=== PATIENT | male | born 1985 ===

== ENCOUNTER 2018-05-18 10:43 | Emergency (ER) | payer SELFPAY ==
[2018-05-18 10:49] VITALS: BMI 34.4
[2018-05-18 11:11] LABS: BASO # 0.06 K/mm3 (0.0-2.0); BASO % 0.9 % (0.0-3.0); EOS # 0.3 (0.0-0.7); EOS % 3.7 % (1.5-5.0); HEMOGLOBIN 15.6 g/dL (14.0-18.0); LYMPH # 2.5 (1.2-3.4); LYMPH % 35.3 % (22.0-35.0); MEAN CELL VOLUME 81.3 fl (80.0-105.0); MEAN CORPUSCULAR HEMOGLOBIN 28.9 pg (25.0-35.0); MEAN CORPUSCULAR HGB CONC 35.6 g/dl (31.0-37.0); MEAN PLATELET VOLUME 10.8 fl (7.0-11.0); MONO # 0.5 (0.1-0.6); MONO % 6.6 % (1.0-6.0); RBC 5.39 10^6/uL (3.5-6.1); RED CELL DISTRIBUTION WIDTH 12.9 % (11.5-14.5)
[2018-05-18 11:18] LABS: ALB/GLOB RATIO 1.3 (1.1-1.8); ALBUMIN 4.7 g/dL (3.0-4.8); ALT/SGPT 98 U/L (7-56); AST/SGOT 60 U/L (17-59); BLOOD UREA NITROGEN 10 mg/dL (7-21); CALCIUM 9.1 mg/dL (8.4-10.5); GFR NON-AFRICAN AMERICAN > 60
--- NOTE | 2018-05-18 11:23 | ED PDOC ---
Arrival/HPI - General Chief Complaint: Chest Pain Historian: Patient - History of Present Illness Narrative History of Present Illness (Text): 05/18/18 11:20 33 y/o M, ex-smoker, with no significant past medical history, presents to the ED for evaluation of sudden onset of chest pain since prior to arrival. Patient states he was walking down the stairs when he experienced a sharp stabbing pain localized to the left side of his chest. Patient states similar episodes of chest pain ongoing for past couple months, for which he was seen at [facility] in [place] 2 weeks ago and was discharged home with no significant findings. Patient informs taking Aspirin in the ambulance with improvement to symptoms. Patient currently informs improved symptoms with pain rated at 4/10 in severity. Patient denies any other associated somatic complaints. Patient denies any fevers, chills, headache, dizziness, shortness of breath, dyspnea on exertion, cough, abdominal pain, nausea, vomiting, diarrhea, back pain, neck pain, or any other complaints. Time/Duration: Prior to Arrival Symptom Onset: Gradual Symptom Course: Unchanged Activities at Onset: Light Context: Home Past Medical History - Provider Review Nursing Documentation Reviewed: Yes - Infectious Disease Hx of Infectious Diseases: None - Cardiac Hx Cardiac Disorders: No - Pulmonary Hx Asthma: Yes - Neurological Hx Neurological Disorder: No - Psychiatric Hx Substance Use: No - Anesthesia Hx Anesthesia: No Family/Social History - Physician Review Nursing Documentation Reviewed: Yes Family/Social History: Unknown Family HX Smoking Status: Former Smoker Hx Alcohol Use: Yes Frequency of alcohol use: Socially Hx Substance Use: No Allergies/Home Meds Allergies/Adverse Reactions: Allergies No Known Allergies Allergy (Verified 05/18/18 10:48) Review of Systems - Physician Review All systems were reviewed & negative as marked: Yes - Review of Systems Constitutional: absent: Fevers Respiratory: absent: SOB, Cough Cardiovascular: Chest Pain Gastrointestinal: absent: Abdominal Pain, Diarrhea, Nausea, Vomiting Genitourinary Male: absent: Dysuria, Urinary Output Changes Musculoskeletal: absent: Back Pain, Neck Pain Skin: absent: Rash Neurological: absent: Headache, Dizziness Psychiatric: absent: Anxiety Physical Exam Vital Signs Reviewed: Yes Vital Signs Temp Pulse Resp BP Pulse Ox 05/18/18 10:53 97.6 F 101 H 20 149/87 99 Temperature: Afebrile Blood Pressure: Normal Pulse: Regular Respiratory Rate: Normal Appearance: Positive for: Well-Appearing, Non-Toxic, Comfortable Pain Distress: None Mental Status: Positive for: Alert and Oriented X 3 - Systems Exam Head: Present: Atraumatic, Normocephalic Pupils: Present: PERRL Extroacular Muscles: Present: EOMI Conjunctiva: Present: Normal Respiratory/Chest: Present: Clear to Auscultation, Good Air Exchange, Tender to Palpation (Reproducible anterior left chest wall tenderness). No: Respiratory Distress, Accessory Muscle Use Cardiovascular: Present: Regular Rate and Rhythm, Normal S1, S2. No: Murmurs Abdomen: No: Tenderness, Distention, Peritoneal Signs Back: Present: Normal Inspection Upper Extremity: Present: Normal Inspection. No: Cyanosis, Edema Lower Extremity: Present: Normal Inspection. No: Edema Neurological: Present: GCS=15, CN II-XII Intact, Speech Normal Skin: Present: Warm, Dry, Normal Color. No: Rashes Psychiatric: Present: Alert, Oriented x 3, Normal Insight, Normal Concentration Medical Decision Making ED Course and Treatment: 05/18/18 10:59 Impression: 33 year old male presents to the ED for evaluation of chest pain. Differential Diagnosis included but are not limited to: -- Chest pain r/o ACS -- Musculoskeletal pain Plan: -- Labs -- EKG -- Urinalysis --CTPE -- Reassess and disposition Prior Visits: Notes and results from previous visits were reviewed. Progress Notes: 05/18/18 10:58 Discussed case and EKG findings with Dr. Mendieta(cardiology), who is aware and believes it is not a Code Heart. 05/18/18 15:07 Discussed radiology read with radiologist to confirm no evidence of acute PE. Will discharge patient home with follow-up instructions. - Lab Interpretations Lab Results: Total Bilirubin 0.6 mg/dL (0.2-1.3) 05/18/18 10:55 AST 60 U/L (17-59) H 05/18/18 10:55 ALT 98 U/L (7-56) H 05/18/18 10:55 Alkaline Phosphatase 88 U/L (38-126) 05/18/18 10:55 Total Protein 8.4 g/dL (5.8-8.3) H 05/18/18 10:55 Albumin 4.7 g/dL (3.0-4.8) 05/18/18 10:55 Globulin 3.6 gm/dL 05/18/18 10:55 Albumin/Globulin Ratio 1.3 (1.1-1.8) 05/18/18 10:55 05/18/18 10:55 05/18/18 10:55 Lab Results 05/18/18 11:40: Urine Opiates Screen Negative, Urine Methadone Screen Negative, Ur Barbiturates Screen Negative, Ur Phencyclidine Scrn Negative, Ur Amphetamines Screen Negative, U Benzodiazepines Scrn Negative, U Oth Cocaine Metabols Negative, U Cannabinoids Screen Negative 05/18/18 11:40: Urine Color Light yellow, Urine Appearance Clear, Urine pH 6.5, Ur Specific [place] <= 1.005, Urine Protein Negative, Urine Glucose (UA) Negati ve, Urine Ketones Negative, Urine Blood Negative, Urine Nitrate Negative, Urine Bilirubin Negative, Urine Urobilinogen 0.2, Ur Leukocyte Esterase Negative 05/18/18 10:55: D-Dimer, Quantitative 395 H 05/18/18 10:55: Sodium 138, Potassium 3.7, Chloride 102, Carbon Dioxide 24, Anion Gap 16, BUN 10, Creatinine 0.7 L, Est GFR ( Amer) > 60, Est GFR (Non-Af Amer) > 60, Random Glucose 93, Calcium 9.1, Magnesium 1.8, Total Bilirubin 0.6, AST 60 H, ALT 98 H, Alkaline Phosphatase 88, Troponin I < 0.01, NT-Pro-B Natriuret Pep < 11.1, Total Protein 8.4 H, Albumin 4.7, Globulin 3.6, Albumin/Globulin Ratio 1.3 05/18/18 10:55: PT 11.1, INR 0.98, APTT 31.1 05/18/18 10:55: WBC 7.0, RBC 5.39, Hgb 15.6, Hct 43.8, MCV 81.3, MCH 28.9, MCHC 35.6, RDW 12.9, Plt Count 235, MPV 10.8, Neut % (Auto) 53.5, Lymph % (Auto) 35.3 H, [place] % (Auto) 6.6 H, Eos % (Auto) 3.7, Baso % (Auto) 0.9, Lymph # (Auto) 2.5, [place] # (Auto) 0.5, Eos # (Auto) 0.3, Baso # (Auto) 0.06, Absolute Neuts (auto) 3.72 I have reviewed the lab results: Yes - RAD Interpretation Narrative RAD Interpretations (Text): 05/18/18 15:06 CT chest reviewed by radiologist, shows: FINDINGS: Note that the examination is limited due to suboptimal opacification of the pulmonary vasculature PULMONARY ARTERIES: The visualized pulmonary trunk, right and left main, lobar segmental and proximal segmental branches of the pulmonary arteries appear relatively well opacified with no filling defects seen to suggest central pulmonary embolus. Pulmonary trunk measures approximately 2.5 cm AORTA: No acute findings. No thoracic aortic aneurysm. Ascending thoracic aorta measures approximately 0.2 cm and descending thoracic aorta measures approximately 2.2 cm. No aortic atherosclerotic calcification or mural plaque present.. Note that the right brachiocephalic and left common carotid artery arise from a common trunk LUNGS: There is mild passive/dependent type atelectasis both posterior lower lung figueroa. No acute consolidation. Minor localized chronic atelectasis or scarring medial aspect right middle lobe.. Minimal linear scarring left lingular region as well. PLEURAL SPACES: Unremarkable. No effusion or pneumothorax. HEART: Heart size is within range normal. No significant pericardial. LYMPH NODES: Significant mediastinal or hilar adenopathy. Trachea midline and patent with no large central endoluminal lesions. Small hiatal hernia. BONES, CHEST WALL: Unremarkable. No fracture or destructive lesion OTHER FINDINGS: Unremarkable. IMPRESSION: Definitive evidence of no acute central pulmonary embolus. Minor passive/dependent type atelectasis both posterior lower lung figueroa. Localized minor chronic atelectasis and or scarring right middle lobe and lingular regions.. Small hiatal hernia with slight wall thickening of distal esophagus likely due protrusion gastric mucosa esophagitis or other intrinsic wall lesion not excluded. Level Vial Inspector: Radiologist - EKG Interpretation EKG Interpretation (Text): 05/18/18 10:46 EKG reviewed, shows NSR @87 bpm, T point elevation at V2. Interpreted by ED Physician: Yes Type: 12 lead EKG - Scribe Statement The provider has reviewed the documentation as recorded by the Scribe Diane Griffin. All medical record entries made by the Scribe were at my direction and personally dictated by me. I have reviewed the chart and agree that the record accurately reflects my personal performance of the history, physical exam, medi cony decision making, and the department course for this patient. I have also personally directed, reviewed, and agree with the discharge instructions and disposition. Disposition/Present on Arrival - Present on Arrival Any Indicators Present on Arrival: No History of DVT/PE: No History of Uncontrolled Diabetes: No Urinary Catheter: No History of Decub. Ulcer: No History Surgical Site Infection Following: None - Disposition Have Diagnosis and Disposition been Completed?: Yes Diagnosis: Pleuritic chest pain Disposition: HOME/ ROUTINE Disposition Time: 15:11 Patient Plan: Discharge Condition: IMPROVED Discharge Instructions (ExitCare): Chest Pain (ED), Chest Pain That Is Not Caused by the Heart (DC) Print Language: CANADIAN Additional Instructions: All medical record entries made by the Scribe were at my direction and personally dictated by me. I have reviewed the chart and agree that the record accurately reflects my personal performance of the history, physical exam, medical decision making, and the department course for this patient. I have also personally directed, reviewed, and agree with the discharge instructions and disposition. Please take Motrin for pain every 6 hours Referrals: Arleen Yañez MD [Medical Doctor] - Follow up with primary [facility] [place] - Follow up with primary Forms: [facility] (Mongolian), WORK NOTE
[2018-05-18 11:29] LABS: TROPONIN I < 0.01 ng/mL
[2018-05-18 11:39] LABS: INR 0.98; PARTIAL THROMBOPLASTIN TIME 31.1 Seconds (26.9-38.3); PROTHROMBIN TIME 11.1 SECONDS (9.4-12.5)
[2018-05-18 11:40] LABS: B-TYPE NATRIURETIC PEPTIDE < 11.1 pg/mL (0-450)
[2018-05-18 12:15] LABS: BARBITURATES, UR NEGATIVE (NEGATIVE); BENZODIAZEPINES, UR NEGATIVE (NEGATIVE); OPIATES, UR NEGATIVE (NEGATIVE); PHENCYCLIDINE, UR NEGATIVE (NEGATIVE)
[2018-05-18 12:20] LABS: PH,URINE 6.5 (4.7-8.0); URINE APPEARANCE CLEAR (CLEAR); URINE BILIRUBIN NEGATIVE (NEGATIVE); URINE BLOOD NEGATIVE (NEGATIVE); URINE COLOR LIGHT YELLOW (YELLOW); URINE GLUCOSE (UA) NEGATIVE (NEGATIVE); URINE LEUKOCYTE ESTERASE NEGATIVE Leu/uL (NEGATIVE); URINE PROTEIN NEGATIVE mg/dL (<30 mg/dL); URINE UROBILINOGEN 0.2 E.U./dL (<1 E.U./dL)
--- NOTE | 2018-05-18 12:40 | CARD ---
APPROVED REPORT Date of service: 05/18/2018 EKG Measurement Heart [id number] <Conclusion> Normal sinus rhythm J point elevation, probable normal variant Borderlinel ECG
[2018-05-18] MEDS ORDERED: Iohexol 350 MG/100 ML VIAL ONE (13:53)
--- NOTE | 2018-05-18 14:50 | CT ---
Date of service: 05/18/2018 PROCEDURE: CT Chest with contrast (Pulmonary Angiogram) HISTORY: SOB w/ reproducible chest pain, elevated D-dimer COMPARISON: No prior study available comparison TECHNIQUE: Axial computed tomography images were obtained of the chest in the pulmonary arterial phase of enhancement. Coronal and sagittal reformatted images were created and reviewed. Intravenous contrast dose: Radiation dose: Total exam DLP = 489.49 mGy-cm. This CT exam was performed using one or more of the following dose reduction techniques: Automated exposure control, adjustment of the mA and/or kV according to patient size, and/or use of iterative reconstruction technique. FINDINGS: Note that the examination is limited due to suboptimal opacification of the pulmonary vasculature PULMONARY ARTERIES: The visualized pulmonary trunk, right and left main, lobar segmental and proximal segmental branches of the pulmonary arteries appear relatively well opacified with no filling defects seen to suggest central pulmonary embolus. Pulmonary trunk measures approximately 2.5 cm AORTA: No acute findings. No thoracic aortic aneurysm. Ascending thoracic aorta measures approximately 0.2 cm and descending thoracic aorta measures approximately 2.2 cm. No aortic atherosclerotic calcification or mural plaque present.. Note that the right brachiocephalic and left common carotid artery arise from a common trunk LUNGS: There is mild passive/dependent type atelectasis both posterior lower lung figueroa. No acute consolidation. Minor localized chronic atelectasis or scarring medial aspect right middle lobe.. Minimal linear scarring left lingular region as well. PLEURAL SPACES: Unremarkable. No effusion or pneumothorax. HEART: Heart size is within range normal. No significant pericardial. LYMPH NODES: Significant mediastinal or hilar adenopathy. Trachea midline and patent with no large central endoluminal lesions. Small hiatal hernia. BONES, CHEST WALL: Unremarkable. No fracture or destructive lesion OTHER FINDINGS: Unremarkable. IMPRESSION: Definitive evidence of acute central pulmonary embolus. Minor passive/dependent type atelectasis both posterior lower lung figueroa. Localized minor chronic atelectasis and or scarring right middle lobe and lingular regions.. Small hiatal hernia with slight wall thickening of distal esophagus likely due protrusion gastric mucosa esophagitis or other intrinsic wall lesion not excluded.
[2018-05-18 15:32] VITALS: BP 135/89; PULSE 83; RESP 18; TEMP 98.1; O2SAT 98
== END 2018-05-18 15:33 | disposition home or self-care (01) ==
LOC: ED 10:43
DX: R07.89 Other chest pain (principal)
CPT/HCPCS: 71275; 80053; 81003; 83735; 83880; 84484; 85025; 85378; 85610; 85730; 93005; 96374; 99284; G0480; J1885; Q9967